=== PATIENT | male | born 1940 | race Caucasian/White ===

== ENCOUNTER → 2016-10-23 | Outpatient (CLI) | payer MEDICARE, OTHER | END | disposition home or self-care (01) | LOC: GMAL 14:23 | PROVIDERS: ATTEND Family Medicine | DX: D51.3 Other dietary vitamin B12 deficiency anemia (principal); Z12.5 Encounter for screening for malignant neoplasm of prostate; R53.83 Other fatigue; E55.9 Vitamin D deficiency, unspecified; D50.8 Other iron deficiency anemias | CPT/HCPCS: 82306; 82607; 82728; 83540; 83550; 84443; G0103 ==

== ENCOUNTER 2016-11-10 15:29 | Inpatient (IN) | payer MEDICARE, OTHER ==
--- NOTE | 2016-11-10 15:30 | HP ---
SUPERVISING PHYSICIAN: Noah Pedroza MD CHIEF COMPLAINT: Left lower leg cellulitis. HISTORY OF PRESENT ILLNESS: This is a 76-year-old male patient who has a history of cellulitis of the lower extremities in 1996 and 2002. They both required hospitalization due to the cellulitis. He went fishing on Thursday and on Thursday evening, his noticed that his left lower leg was swollen. It was warm to the touch. He also had two areas on the medial aspect of his heel and on the lateral aspect of his heel that had some skin pressure damage due to his boots. This morning, he saw Dr. Hurtado, his primary care physician, for an appointment. Earlier today, the erythema and edema was up to mid-calf and at the office visit it had extended up to the knee area. Dr. Hurtado called me for admission for left lower leg cellulitis. PAST MEDICAL HISTORY: 1. Multiple episodes of pneumonia prior to age 14. 2. Cellulitis of the left leg in 1996 and cellulitis of the right leg in 2002, both with hospitalization. 3. History of olecranon bursitis. 4. Seasonal allergies. PAST SURGICAL HISTORY: 1. Left elbow surgery. 2. Tonsillectomy. 3. Left mastectomy for benign gynecomastia. 4. Left shoulder surgery. 5. Multiple skin excisions due to skin cancer. OUTPATIENT MEDICATIONS: None. ALLERGIES: ASPIRIN, ADHESIVE TAPE. FAMILY HISTORY: Father due to lung cancer and myocardial infarction. He was also a smoker. His mother had coronary artery disease. His brother has hypertension. His sister has kidney disorder. Son has diabetes. Both daughters have bipolar disease. Youngest daughter is adopted. 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 He is and has 4 children. He lives outside of [place]. He does not smoke cigarettes, but occasionally smokes a pipe. He drinks alcohol on a social basis. REVIEW OF SYSTEMS: GENERAL: Denies fever, fatigue or weight changes. HEENT: Denies sinus symptoms, ear pain, vision changes or sore throat. RESPIRATORY: Denies wheezing, coughing or shortness of breath. CARDIAC: Denies chest pain, palpitations or tachycardia. GASTROINTESTINAL: Denies nausea, vomiting, diarrhea, constipation or abdominal pain. GENITOURINARY: Denies hematuria, dysuria or polyuria. EXTREMITIES: As per history of present illness. NEUROLOGIC: Denies headache, dizziness, or seizures. SKIN: Denies lesions or rashes other than as indicated in the history of present illness. PHYSICAL EXAMINATION: VITAL SIGNS: Temp 97.9. Heart rate 81. Blood pressure 126/75. Respiratory rate 18. O2 sat 97%. GENERAL: This is a 76-year-old male patient who is sitting up in his hospital bed. He is in no acute distress. HEENT: Normocephalic, atraumatic. Pupils are equal and reactive. NECK: Supple without mass. RESPIRATORY: Clear to auscultation bilaterally. CHEST: There is equal rise and fall of the chest with inspiration and expiration. CARDIOVASCULAR: Regular rate and rhythm. ABDOMEN: Soft, nondistended, nontender. Bowel sounds are positive. EXTREMITIES: Right lower leg has no cyanosis, clubbing or edema. His left lower leg is edematous to just below the knee, but the erythema extends up to the knee and into the medial aspect of the left thigh. Bilateral pedal pulses are palpable. There is no fluctuance or drainage noted. NEUROLOGIC: Awake, alert and oriented times three. LABORATORY: Laboratory results are pending. Left lower extremity ultrasound shows there is no DVT identified and there is normal color flow observed with good flow, augmentation and all deep veins compress normally. ASSESSMENT: 1. Cellulitis of the left lower leg with significant history of lower leg cellulitis resulting in hospital admissions in 1996 and 2002. 2. History of skin cancers. 3. Seasonal allergies. PLAN: We will admit the patient to the hospital. I have ordered routine labs including CRP and ESR as well as blood cultures. We will start him on Protonix for ulcer prophylaxis and Lovenox for DVT prophylaxis. I will also start him on Levaquin IV as well as Bactrim DS. We will monitor his cultures, encourage good pulmonary hygiene and followup as needed. I have also given tramadol for pain. He will need to keep his leg elevated as much as possible. Dr. Pedroza is the collaborating physician and available for consultation. #[id number] [facility]
[2016-11-10] MEDS ORDERED: SODIUM CHLORIDE 0.9% (FLUSH) 10 ML SYG IV PRN (15:42)
[2016-11-10] MEDS ORDERED: ONDANSETRON INJ 4 MG/2 ML VIAL IV PRN (15:44)
[2016-11-10] MEDS ORDERED: PANTOPRAZOLE SODIUM IV 40 MG VIAL IV SCH (16:00)
[2016-11-10] MEDS ORDERED: ENOXAPARIN SODIUM 40 MG/0.4 ML SYG SUBCU SCH (16:00)
--- NOTE | 2016-11-10 16:13 | US ---
EXAM DESCRIPTION: Venous,Lower Extremity LT CLINICAL HISTORY: r/o dvt COMPARISON: None Available. TECHNIQUE: Left lower extremity venous duplex FINDINGS: There is no DVT identified. There is normal color flow observed with good flow augmentation. All deep veins compress normally. IMPRESSION: Negative for DVT Electronically signed by: Jeff Peck MD 11/10/2016 4:12 PM CDT
[2016-11-10] MEDS ORDERED: traMADol HCL 50 MG TAB PO PRN (16:24)
[2016-11-10] MEDS ORDERED: IBUPROFEN 400 MG TAB PO PRN (16:24)
[2016-11-10] MEDS ORDERED: levoFLOXacin 500MG IV 100 ML IVPB ONE (16:56)
[2016-11-10] MEDS: levoFLOXacin 500MG IV 500 MG in PREMIX BAG 1 BAG IVPB SCH (17:14)
[2016-11-10] MEDS: SODIUM CHLORIDE 0.9% 1000ML 1,000 ML IVS PRN (17:14)
[2016-11-10] MEDS: SULFA/TRIMETH 800/160 (DS) TAB 1 EA TAB PO SCH (17:15)
[2016-11-10] MEDS: IV SET AND CAP CHANGE INJ INJ SCH (17:33)
--- NOTE | 2016-11-10 20:06 | PCM.CORE ---
Physician DVT/VTE - Prophylaxis Currently: Patient already on anticoagulation therapy - Contraindications Mechanical Device Contraindication: Procedure contraindicated Medication Contraindication: Complication of Medical Care - Nurse DVT Assessment & Total Each Risk Factor Represents 3 Points: Age over 75 years DVT Assessment Score: 3 - 3-4 High Risk Treatments: Early Ambulation *, Sequential Compression Device - on right leg only
[2016-11-11] MEDS: SODIUM CHLORIDE 0.9% 1000ML 1,000 ML IVS PRN (03:29)
[2016-11-11] MEDS: SULFA/TRIMETH 800/160 (DS) TAB 1 EA TAB PO SCH ×2 (03:31→16:32)
[2016-11-11] MEDS: ENOXAPARIN SODIUM 40 MG/0.4 ML SYG SUBCU SCH (08:37)
[2016-11-11] MEDS ORDERED: MAGNESIUM HYDROXIDE 30 ML UD PO PRN (12:11)
[2016-11-11] MEDS ORDERED: MAGNESIUM HYDROXIDE 30 ML UD PO ONE (12:11)
--- NOTE | 2016-11-11 13:20 | PN ---
SUPERVISING PHYSICIAN: Noah Pedroza MD DATE: 11/11/16 SUBJECTIVE: The patient is sitting up in his hospital bed. His family is at bedside. He denies any shortness of breath, chest pain, nausea or vomiting, but he does complain of some constipation. The patient's told me that he has seen Dr. Villarreal in the past and I explained to her that I was going to talk to his associate, Dr. Frances, later today in regards to his leg. Both the patient and the feel that his leg is very slightly improved since yesterday. OBJECTIVE: VITAL SIGNS: Afebrile. Heart rate 82. Blood pressure 114/64. Respiratory rate 16. O2 saturation 95% on room air. LUNGS: Clear to auscultation bilaterally. CARDIAC: Regular rate and rhythm. ABDOMEN: Soft, nontender, nondistended. Bowel sounds are positive. EXTREMITIES: His right lower extremity has pedal pulses at +2. His left lower extremity has redness and erythema that is very similar to yesterday's exam. It may be very minimally better, especially on the medial aspect of his thigh and his toes are not quite as edematous as yesterday. He does have some bruising on the lateral and medial aspects of the outer heel, but is improved from yesterday's exam. NEUROLOGIC: Awake, alert and oriented times three. LABORATORY: Laboratory from late yesterday showed white blood cell count 8.6, hemoglobin 13.0, hematocrit 38.3, platelet count 152. ESR 61. Electrolytes are within normal limits with a slightly elevated glucose of 131. Serum osmolality 273.9. Liver enzymes were within normal limits, but his C-reactive protein was 24.3. All other labs and films have been reviewed via the EMR. ASSESSMENT: 1. Cellulitis of the left lower leg with significant history of lower leg cellulitis resulting in hospital admissions in 1996 and 2002. 2. History of skin cancers. 3. Seasonal allergies. 4. Constipation. PLAN: We will continue present supportive care. I have contacted Dr. Frances's office, infectious disease physician in [place], who is an associate of Dr. Villarreal. The patient was seen by Dr. Villarreal with his hospitalization either in 1996 or 2002. I will get her recommendations on his antibiotic therapy, especially if he does not have any significant improvement over the next 24 hours. Routine lab is ordered for the morning. I have given him some Milk of Magnesia for constipation and I have also encouraged him to keep his leg elevated and to continue with good pulmonary hygiene. We will continue to monitor the patient closely and followup as needed. Dr. Pedroza is the collaborating physician and available for consultation. #[id number] [facility]
[2016-11-11] MEDS ORDERED: levoFLOXacin 500MG IV 100 ML IVPB ONE (16:28)
[2016-11-11] MEDS ORDERED: SULFA/TRIMETH 800/160 (DS) TAB 1 EA TAB ONE (16:28)
[2016-11-11] MEDS: levoFLOXacin 500MG IV 500 MG in PREMIX BAG 1 BAG IVPB SCH (16:32)
[2016-11-12] MEDS: SULFA/TRIMETH 800/160 (DS) TAB 1 EA TAB PO SCH ×2 (03:56→16:07)
[2016-11-12] MEDS: ENOXAPARIN SODIUM 40 MG/0.4 ML SYG SUBCU SCH (08:53)
[2016-11-12] MEDS: PANTOPRAZOLE SODIUM TAB 40 MG PO SCH (12:20)
[2016-11-12] MEDS ORDERED: levoFLOXacin 500MG IV 100 ML IVPB ONE (14:37)
[2016-11-12] MEDS: levoFLOXacin 500MG IV 500 MG in PREMIX BAG 1 BAG IVPB SCH (16:07)
--- NOTE | 2016-11-12 18:08 | PN ---
DATE: 11/12/16 SUPERVISING PHYSICIAN: Noah Pedroza M.D. SUBJECTIVE: The patient is sitting up in his hospital bed. His left leg is elevated. He has no complaints of shortness of breath, chest pain, nausea or vomiting, diarrhea or constipation. His foot is much better today. OBJECTIVE: VITAL SIGNS: He is afebrile, heart rate 72, blood pressure 141/72, respiratory rate 17, O2 sat is 96% on room air. RESPIRATORY: Clear to auscultation bilaterally. CARDIAC: Regular rate and rhythm. ABDOMEN: Soft, nondistended, non-tender. Bowel sounds are positive. EXTREMITIES: Pedal pulses to bilateral lower extremities are +2. The redness in his left lower leg has improved greatly. Erythema of the leg has improved to his mid foot that extends superiorly to just below the knee and there is no redness on the medial aspect of his left thigh. He has edema to that lower left foot with some pitting and yesterday the tightness in the foot was actually where you could make no indention in the top of his foot. NEUROLOGIC: He is awake, alert and oriented times three. LABORATORY: WBCs are 4.8, hemoglobin 12.2, hematocrit 36.3, platelets 152. Electrolytes are within normal limits. Preliminary blood cultures show no growth after 48 hours. All other labs and films have been reviewed via the EMR. ASSESSMENT: 1. Cellulitis of the left lower leg with significant history of lower leg cellulitis resulting in hospital admissions in 1996 and 2002. 2. History of skin cancers. 3. Seasonal allergies. 4. Constipation now resolved. PLAN: We will continue present supportive care. We will continue his present antibiotic therapy that includes IV Levaquin and p.o. Bactrim. Will continue to monitor his progress over the next day or 2. Hopefully he can go home as long as his leg improves. He had a good bowel movement this morning but he does continue to have p.r.n. Milk of Magnesia as needed. Encouraged good pulmonary hygiene. Will monitor him closely and follow as needed. Dr. Pedroza is the collaborating physician available for consultation. #[id number] [facility]ITAL[facility]
[2016-11-13] MEDS: SULFA/TRIMETH 800/160 (DS) TAB 1 EA TAB PO SCH ×2 (04:16→16:08)
[2016-11-13] MEDS: PANTOPRAZOLE SODIUM TAB 40 MG PO SCH (06:19)
[2016-11-13] MEDS: ENOXAPARIN SODIUM 40 MG/0.4 ML SYG SUBCU SCH (08:55)
--- NOTE | 2016-11-13 11:33 | PN ---
SUPERVISING PHYSICIAN: Noah Pedroza MD DATE: 11/13/16 SUBJECTIVE: The patient is sitting up in his hospital bed. He has no complaints of shortness of breath, chest pain, nausea, vomiting, diarrhea or constipation. His left lower leg has greatly improved. He has not walked for any distance except to the bathroom. He will have his bring his crutches for him at home and we will get him and ambulating. OBJECTIVE: VITAL SIGNS: Temperature 97.4. Heart rate 76. Blood pressure 127/ 79. Respiratory rate 20. O2 saturation 97% on room air, but has gone as low as 93% on room air. LUNGS: Clear to auscultation bilaterally. CARDIAC: Regular rate and rhythm. ABDOMEN: Soft, nontender, nondistended. Bowel sounds are positive. EXTREMITIES: Bilateral pedal pulses are palpable at +2. Left lower extremity is much improved since yesterday. He continues to have mild erythema from midfoot to midcalf. The warmth is much less than yesterday. He still has quite a bit of edema to the lower leg, but it is improved since yesterday. He actually has some wrinkles across the top of his foot. NEUROLOGIC: Awake, alert and oriented times three. LABORATORY: WBC 4.6, hemoglobin 13, hematocrit 38, neutrophils 73.9, ESR pending. CMP is basically within normal limits, but his C-reactive protein has improved from 24.3 on 11/10/16 to 8.3 today. Preliminary blood cultures show no growth after 48 hours. All other labs and films have been reviewed via the EMR. ASSESSMENT: 1. Cellulitis of the left lower leg with significant history of lower leg cellulitis resulting in hospital admissions in 1996 and 2002. 2. History of skin cancers. 3. Seasonal allergies. 4. Constipation, now resolved. PLAN: We will continue present supportive care. His will bring his crutches from home and he will ambulate with crutches in the hallways. If he is doing well on crutches, we will most likely send him home tomorrow with p.o. Bactrim and p.o. Levaquin. He will have close followup with Dr. Hurtado. Meanwhile, we will encourage good pulmonary hygiene. We will continue to monitor the patient closely and followup as needed. Dr. Pedroza is the collaborating physician and available for consultation. #[id number] [facility]
[2016-11-13] MEDS ORDERED: levoFLOXacin 500MG IV 100 ML IVPB ONE (15:55)
[2016-11-13] MEDS: levoFLOXacin 500MG IV 500 MG in PREMIX BAG 1 BAG IVPB SCH (16:07)
[2016-11-13] MEDS: IV SET AND CAP CHANGE INJ INJ SCH (17:37)
[2016-11-14] MEDS: SULFA/TRIMETH 800/160 (DS) TAB 1 EA TAB PO SCH (04:20)
[2016-11-14] MEDS: PANTOPRAZOLE SODIUM TAB 40 MG PO SCH (06:32)
[2016-11-14] MEDS: ENOXAPARIN SODIUM 40 MG/0.4 ML SYG SUBCU SCH (09:12)
[2016-11-14 10:05] VITALS: O2SAT 97
[2016-11-14] MEDS ORDERED: BIFIDOBACTERIUM INFANTIS 4 MG CAP PO SCH (12:00)
[2016-11-14] MEDS ORDERED: levoFLOXacin 500 MG TAB PO ONE (12:57)
--- NOTE | 2016-11-14 14:02 | DS ---
SUPERVISING PHYSICIAN: Noah Pedroza MD DISCHARGE DIAGNOSIS: 1. Cellulitis of the left lower leg with significant history of lower leg cellulitis resulting in hospital admissions in 1996 and 2002. 2. History of skin cancers. 3. Seasonal allergies. 4. Constipation, now resolved. HISTORY OF PRESENT ILLNESS: This is a 76-year-old male patient who has a history of cellulitis of the lower extremities in 1996 and 2002. They both required hospitalization due to the cellulitis. He went fishing on Thursday and on Thursday evening, his noticed that his left lower leg was swollen. It was warm to the touch. He also had two areas on the medial aspect of his heel and on the lateral aspect of his heel that had some skin pressure damage due to his boots. This morning, he saw Dr. Hurtado, his primary care physician, for an appointment. Earlier today, the erythema and edema was up to mid-calf and at the office visit it had extended up to the knee area. Dr. Hurtado called me for admission for left lower leg cellulitis. HOSPITAL COURSE: The patient was started on Bactrim p.o. as well as Levaquin IV. The first 24 hours showed very minimal progress in his cellulitis, but on day 2, it was much improved. Over the next 2 days, each day he had marked improvement around the cellulitis area. He kept his leg elevated at all times. Yesterday, he began ambulating with his crutches. He had no problems with ambulation or getting around in his room. His initial labs showed WBC 8.6 and today is 5.1. He came in with 86.1% neutrophils and today is 70.7%. ESR on admission was 61. It did go up to 90 and we are awaiting ESR today. C- reactive protein on admission was 24.3 and yesterday was 8.3. Electrolytes were within normal limits. He did have a left lower extremity sonogram that was negative for DVT. He can be discharged home. DISCHARGE PLAN: The patient will be discharged home in stable condition. He is to use crutches for ambulation until he sees Dr. Hurtado next week on 11/20/16 at 10:30 AM. He has received his dose of Levaquin today, but he will need to take his dose of Bactrim tonight. He will continue on Levaquin and Bactrim for 5 additional days starting tomorrow. DISCHARGE MEDICATIONS: 1. Align. 2. Levaquin. 3. Bactrim DS. Dr. Pedroza is the collaborating physician and available for consultation. #[id number] [facility]
[2016-11-14 14:49] VITALS: BP 131/72; TEMP 98.2
[2016-11-14] MEDS ORDERED: levoFLOXacin 500 MG TAB ONE (14:54)
== END 2016-11-14 15:05 | disposition home or self-care (01) | DRG 603 ==
LOC: MS 15:29
PROVIDERS: ADMIT Family Medicine; ATTEND Nurse Practitioner Acute Care
DX: L03.116 Cellulitis of left lower limb (principal); K59.00 Constipation, unspecified; J30.2 Other seasonal allergic rhinitis; Z88.6 Allergy status to analgesic agent

== ENCOUNTER 2018-05-28 11:00 | Observation (INO) | payer MEDICARE, OTHER ==
--- NOTE | 2018-05-28 11:28 | HP ---
CHIEF COMPLAINT: Swollen left leg, possibly cellulitis. HISTORY OF PRESENT ILLNESS: Mr. Gong is a very pleasant, 77-year-old gentleman who has had a long history of recurrent episodes of cellulitis in either leg at different times. The patient's initial episode of cellulitis occurred about 20 years ago, he said after brown recluse bite. Since then, he has had four different episodes requiring admission to the hospital and IV antibiotics. There is quite a confusing history, but from what I understand with help from his primary care physician, the patient and his , his last admission required IV antibiotics of Levaquin along with p.o. Bactrim. The admission prior to that, he was discharged only on p.o. Bactrim, and the cellulitis had actually returned. He did require IV Levaquin after the last admission on an outpatient basis for about an extra week. He has had no problems since then. He presented to clinic the day after waking up in the morning with a sudden onset of left leg swelling and redness, endorsing that when he went to sleep it was normal. He does wear compression hose and he did have those on last night. He denies any type of fever and chills and no leg pain. He just noticed the swelling and redness this morning and due to being exposed to this situation in the past, he knew he needed to go to the clinic. PAST MEDICAL HISTORY: 1. 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 PAST SURGICAL HISTORY: 1. Left breast cystectomy. HOME MEDICATIONS: 1. Probiotics. 2. Multivitamins. ALLERGIES: 1. Aspirin. 2. Adhesive tape. SOCIAL HISTORY: He denies any use of tobacco or alcohol and no illicit drug use. REVIEW OF SYSTEMS: GENERAL: He denies fevers or chills. RESPIRATORY: Denies shortness of breath, denies cough, denies wheezing. CARDIAC: Denies palpitations, denies chest pains. ABDOMEN: Endorses normal bowel movements, denies any abdominal pain. EXTREMITIES: Left leg swelling, denies left leg pain, left leg patchy redness. NEUROLOGIC: Denies headache, denies dizziness or confusion. PHYSICAL EXAMINATION: VITAL SIGNS: Temperature 97.7. Pulse 78. Blood pressure 145/76. Respiratory rate 18. O2 saturation 100% on room air. GENERAL: In no acute distress, conversing normally. CHEST: Lungs clear to auscultation, no wheezes, no crackles. CARDIAC: Normal rate and rhythm, no murmurs, good pulses in all extremities even left lower extremity in the dorsalis pedis location. ABDOMEN: Nontender to palpation, no masses appreciated. EXTREMITIES: +2 pitting edema in bilateral lower extremities, left lower extremity with patchy redness that assumes the lining of compression hose, warm to touch over the red areas located around the ankle and the proximal anterior tibial area, normal pulses, normal motor movement in the left lower extremity, slight patchy erythema on the anterior portion of the thigh, a nontender, mobile, nondiscrete oblong mass in the left inguinal region, approximately 3 inches by 1.5 cm long. LABORATORY: White blood cell count 6.6, hemoglobin 12.5, hematocrit 37.6. No left shift. Platelet count 136. D-dimer 0.63, under the threshold for his age. Sodium 136, potassium 3.8, chloride 104, CO2 22, random glucose 106. BUN 18, creatinine 1.01. MICROBIOLOGY: Blood cultures pending. IMAGING: Left lower extremity soft tissue ultrasound reveals 2.8 cm probable lymph node in the left groin, no adjacent soft tissue abnormalities or complications. Most likely enlarged lymph node, no distinct cyst, no parenchymal edema or calcifications, no overlying skin changes. ASSESSMENT: 1. 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 2. Left inguinal lymphadenopathy. 3. History of basal cell carcinoma of the face. 4. History of squamous cell carcinoma of the face. PLAN: We will admit Mr. Gong for IV treatment of his left lower extremity cellulitis. Given his history of antibiotics and failure on some IV antibiotics as outpatient, we will start with IV Levaquin and IV clindamycin. Clindamycin, unlike Levaquin, will lend good coverage of MRSA. If need be, he will be transitioned to oral on either of these, but he may need to have IV Levaquin daily for an extended amount of time, approximately 2 weeks. During that time, he will be able to go to clindamycin p.o. We will continue to watch his erythema on his left leg and follow the hopeful regression from the demarcation previously made. We will give him some steroids based on his history of improvement with this, as well as recent literature indicating its success. Given the ultrasound results given the inguinal mass, currently a lymph node most likely, we will monitor for now. Plan on the patient staying at least one midnight, possibly two. We will assess his improvement on IV antibiotics and likely need to arrange outpatient IV antibiotics to complete a total course of 10 to 14 days given the chronic recurrence of this problem. We will also start prophylactic Lovenox, given his low D-dimer for his age. No sign of DVT at this time. #[id number] [facility]
[2018-05-28] MEDS ORDERED: SODIUM CHLORIDE 0.9% (FLUSH) 10 ML SYG IV PRN (11:52)
[2018-05-28] MEDS ORDERED: IV SET AND CAP CHANGE INJ INJ SCH (12:00)
[2018-05-28] MEDS ORDERED: CLINDAMYCIN IV 600MG 50 ML IVPB ONE ×2 (12:10→20:02)
[2018-05-28] MEDS ORDERED: levoFLOXacin 750MG IV 750 MG in PREMIX BAG 1 BAG IVPB SCH (12:30)
[2018-05-28] MEDS: CLINDAMYCIN IV 600MG 600 MG in PREMIX BAG 1 BAG IVPB SCH ×2 (12:44→20:09)
--- NOTE | 2018-05-28 13:27 | US ---
EXAM DESCRIPTION: Soft Tissue,Extremity: ULTRASOUND. CLINICAL HISTORY: 77 years Male Left Inguinal Mass. Palpable mass in the left groin. COMPARISON: None Available. TECHNIQUE: Transcutaneous scanning: Christine-scale and Doppler modes. FINDINGS: Circumscribed microlobulated mass in the left groin which is palpable measuring 2.8 x 2.3 x 1.2 cm. Minimal vascularity and central echogenicity. Most likely an enlarged lymph node. No distinct cyst. No parenchymal edema or large calcifications. No overlying skin changes. IMPRESSION: 2.8 cm probable lymph node in the left groin. No adjacent soft tissue abnormalities or complications. Electronically signed by: Tanner Rich MD 05/28/2018 1:24 PM [employer]
[2018-05-28] MEDS: levoFLOXacin 750MG IV 750 MG in PREMIX BAG 1 BAG IVPB SCH (14:46)
[2018-05-28] MEDS: ENOXAPARIN SODIUM 40 MG/0.4 ML SYG SUBCU SCH (14:48)
[2018-05-29] MEDS ORDERED: CLINDAMYCIN IV 600MG 50 ML IVPB ONE ×3 (03:38→19:34)
[2018-05-29] MEDS: CLINDAMYCIN IV 600MG 600 MG in PREMIX BAG 1 BAG IVPB SCH ×3 (04:11→20:26)
[2018-05-29] MEDS: SODIUM CHLORIDE 0.9% (FLUSH) 10 ML SYG IV SCH ×2 (08:52→21:19)
[2018-05-29] MEDS: ENOXAPARIN SODIUM 40 MG/0.4 ML SYG SUBCU SCH (10:19)
--- NOTE | 2018-05-29 11:53 | PN ---
DATE: 05/29/18 SUBJECTIVE: The patient is in great spirits this morning, slept decently overnight. He states he has some burning in the left lower extremity, but decreased from the previous day. No new changes or concerns at this time. REVIEW OF SYSTEMS: GENERAL: No anxiety, no weepiness or other issues. CHEST: No shortness of breath, no cough. CARDIAC: No chest pain, no palpitations. ABDOMEN: No abdominal pain, no constipation, no diarrhea. EXTREMITIES: Slightly decreased swelling in the left leg, still burning in the left leg but decreased. NEURO: No confusion, no focal deficits. OBJECTIVE: VITAL SIGNS: Temperature 97.8, pulse 74, blood pressure 133/76, respiratory rate 16. Oxygen 97% on room air. PHYSICAL EXAMINATION: GENERAL: No acute distress, no anxiety, improving mood and affect. CHEST: Lungs clear to auscultation, no wheezes, no cough. CARDIO: Normal rate and rhythm, no murmurs. ABDOMEN: No tenderness to palpation, normal bowel sounds. EXTREMITIES: Pitting in bilateral lower extremities, slightly worse on the left. Edema on the left leg is close to pitting, but improved from previous day. Regarding the erythema, previously demarcated, it is slightly receding in location as well as in severity. Some wrinkling of the skin can be seen in the dorsal foot, which is an improvement from yesterday. No pain with palpation throughout the leg. No pain over the enlarged lymph node in the left leg as well. Pulses easily defined in all extremities. NEURO: No focal deficits, alert and oriented to person, place and time. LABORATORY: White blood cells 5.9, hemoglobin 11.9, hematocrit 35.4, platelet count 140,000. Sodium 134, potassium 3.8, chloride 104, carbon dioxide 21, BUN/creatinine 15/0.91. MICROBIOLOGY: Blood cultures x2 are negative to date. IMAGING: Left leg soft tissue ultrasound from 05/28/18: "2.8 cm probable lymph node in the left groin. No adjacent soft tissue abnormalities or complications." ASSESSMENT: 1. 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 2. Left inguinal lymphadenopathy. 3. History of basal cell carcinoma of the face. 4. History of squamous cell carcinoma of the face. PLAN: Mr. Gong seems to be improving very well on IV clindamycin and IV Levaquin, we will continue these. He is currently on DVT prophylaxis with Lovenox. His labs and clinical status regarding his left leg seem to be improving. We will continue the current antibiotics, he will likely need 10 to 14 days of IV Levaquin given the return of this issue in the past. He likely can be transitioned to p.o. clindamycin since it would require multiple doses of intravenous access a day. If he continues to improve and we see recession of the erythema and swelling of the left leg, he likely can be transitioned to outpatient treatment with IV antibiotics at [facility] or here in the hospital. I expect discharge to be completed tomorrow or the next day. [facility][id number] [facility]
[2018-05-29] MEDS: levoFLOXacin 750MG IV 750 MG in PREMIX BAG 1 BAG IVPB SCH (13:20)
[2018-05-30] MEDS ORDERED: CLINDAMYCIN IV 600MG 50 ML IVPB ONE ×2 (04:27→12:11)
[2018-05-30] MEDS: CLINDAMYCIN IV 600MG 600 MG in PREMIX BAG 1 BAG IVPB SCH ×2 (04:54→12:23)
[2018-05-30] MEDS: ENOXAPARIN SODIUM 40 MG/0.4 ML SYG SUBCU SCH (08:00)
[2018-05-30] MEDS: SODIUM CHLORIDE 0.9% (FLUSH) 10 ML SYG IV SCH (08:03)
[2018-05-30] MEDS ORDERED: CLINDAMYCIN HCL CAP (ER DISP) 150 MG CAP ONE (11:55)
[2018-05-30] MEDS: levoFLOXacin 750MG IV 750 MG in PREMIX BAG 1 BAG IVPB SCH (13:19)
[2018-05-30 14:01] VITALS: BP 137/79; TEMP 98.2; O2SAT 96
== END 2018-05-30 15:56 | disposition home or self-care (01) ==
LOC: MS 11:00 → INTOOBSV 11:00
PROVIDERS: ADMIT Family Medicine; ATTEND Nurse Practitioner Family
DX: L03.116 Cellulitis of left lower limb (principal); R59.0 Localized enlarged lymph nodes; E78.5 Hyperlipidemia, unspecified; M81.0 Age-related osteoporosis without current pathological fracture; E53.8 Deficiency of other specified B group vitamins; D50.9 Iron deficiency anemia, unspecified; N52.9 Male erectile dysfunction, unspecified; Z79.899 Other long term (current) drug therapy; Z88.6 Allergy status to analgesic agent; Z91.048 Other nonmedicinal substance allergy status; Z85.828 Personal history of other malignant neoplasm of skin
CPT/HCPCS: 96366 ×3; 96367; 96365; 96376; 96372 ×3; J1650 ×3; J3490 ×7; J1956 ×3; 85379; 80048 ×2; 36415 ×4; 85025; 87040 ×2; 76881; G0378

== ENCOUNTER 2018-12-18 08:28 | Inpatient (IN) | payer MEDICARE, OTHER ==
[2018-12-18] MEDS ORDERED: SODIUM CHLORIDE 0.9% 1000ML 1,000 ML IVS ONE (08:51)
[2018-12-18] MEDS ORDERED: ACETAMINOPHEN 500 MG TAB PO ONE (08:51)
[2018-12-18] MEDS ORDERED: PIPERACILLIN/TAZOBACTAM 3.375 GM in SODIUM CHLORIDE 0.9% 100ML 100 ML IVPB ONE (08:52)
[2018-12-18] MEDS ORDERED: VANCOMYCIN HCL INJ 1,000 MG in SODIUM CHLORIDE 0.9% 250ML 250 ML IVPB ONE (08:52)
--- NOTE | 2018-12-18 08:53 | ED.PDOC ---
History of Present Illness - General Chief Complaint: Skin/Abrasion/Tear Stated Complaint: redness to right lower leg Time Seen by Provider: 12/18/18 08:50 - History of Present Illness Initial Comments: 78 yo M no significant PMH presents to ED c/o RLE cellulitis that began with burning discomfort 3 days ago and culminated in redness today. who is nurse at bedside has marked area of erythema with pen. Denies trauma fever chills nausea vomiting diarrhea chest pain sob diaphoresis. No change in diet rest bowel or bladder. Ambulatory in the emergency room and PMD is Dr. Hurtado. Denies drinking admits occasional smoking of pipe. Admits FH HTN DM no other c/o today. Allergies/Adverse Reactions: Allergies Aspirin Allergy (Verified 07/24/14 07:46) Protective Adhesive Powder Allergy (Verified 07/24/14 07:46) Home Medications: Ambulatory Orders NK 12/18/18 Review of Systems - Review of Systems Constitutional: States: no symptoms reported EENTM: States: no symptoms reported Respiratory: States: no symptoms reported Cardiology: States: no symptoms reported Gastrointestinal/Abdominal: States: no symptoms reported Genitourinary: States: no symptoms reported Musculoskeletal: States: no symptoms reported Skin: States: see HPI, change in color Neurological: States: no symptoms reported Endocrine: States: no symptoms reported Hematologic/Lymphatic: States: no symptoms reported All other Systems: Reviewed and Negative Past Medical History (General) - Patient Medical History Hx Seizures: No Hx Stroke: No Hx Asthma: Yes - as a child Hx of COPD: No Hx Congestive Heart Failure: No Hx Pacemaker: No Hx Hypertension: No Hx Diabetes: No Hx Cancer: Yes - Skin Hx MRSA: No - Vaccination History Hx Influenza Vaccination: No Hx Pneumococcal Vaccination: No - Social History Hx Tobacco Use: No Hx Alcohol Use: No Hx Substance Use: No Hx Physical Abuse: No Hx Emotional Abuse: No Family Medical History - Family History Mother Age (years): 92 Living Status: Hx Family Stroke: Yes Hx Cardiac Disease: Yes Hx Family;Other: Blind in 80yrs Sister Living Status: Still Living Hx Family Diabetes: Yes Hx Family;Other: part of foot removed due to Father Age (years): 60 Living Status: Hx Family;Other: dad mom with heart condtions Physical Exam - Physical Exam General Appearance: No apparent distress Eye Exam: bilateral normal Ears, Nose, Throat: normal ENT inspection Neck: non-tender, full range of motion Respiratory: normal breath sounds, no respiratory distress Cardiovascular/Chest: regular rate, rhythm Gastrointestinal/Abdominal: non tender, soft Back Exam: normal inspection Extremity: normal range of motion Neurologic: no motor/sensory deficits Skin Exam: other - erythema and warmth to RLE demarcated at about half level not extending below ankle and not extending superiorly Progress - Progress Progress: 12/18/18 08:58 A/P-RLE Cellulitis 1.iv fluids tylenol cbc cmp zosyn vancomycin ADMIT Observation 12/18/18 09:01 will add pt/ptt 12/18/18 09:50 Laboratory Tests 12/18/18 12/18/18 12/18/18 09:00 09:10 09:10 WBC 8.8 RBC 3.42 L Hgb 11.0 L Hct 32.5 L MCV 95.1 H MCH 32.2 H MCHC 33.9 RDW 13.2 Plt Count 154 MPV 6.8 L Absolute Neuts (auto) 8.10 H Absolute Lymphs (auto) 0.40 L Absolute Monos (auto) 0.30 Absolute Eos (auto) 0.00 Absolute Basos (auto) 0.00 Neutrophils % 91.9 H Lymphocytes % 4.7 L Monocytes % 3.0 Eosinophils % 0.2 L Basophils % 0.2 PT 12.1 H INR 1.21 H PTT (SP) 28.5 Sodium 136 Potassium 3.3 L Chloride 104 Carbon Dioxide 23 Anion Gap 12.3 BUN 17 Creatinine 0.97 BUN/Creatinine Ratio 17.5 Random Glucose 107 H Serum Osmolality 274.0 L Calcium 8.1 L Total Bilirubin 0.6 AST 31 ALT 22 Alkaline Phosphatase 52 Serum Total Protein 6.7 Albumin 3.7 Globulin 3.0 Albumin/Globulin Ratio 1.[address] Stafford for Admission. Spoke to Dr. Stafford who accepts patient reques t addition of ESR CRP Departure - Departure Clinical Impression: Cellulitis Qualifiers: Site of cellulitis: extremity Site of cellulitis of extremity: lower extremity Laterality: right Qualified Code(s): L03.115 - Cellulitis of right lower limb Time of Disposition: 09:58 Disposition: Admit Patient Condition: Fair Departure Forms: ED Discharge - Pt. Copy, Patient Portal Self Enrollment Instructions: DI for Abrasion Referrals: Jeff Hurtado III, MD [Primary Care Provider] - 1-2 Weeks Home Medications: Ambulatory Orders NK 12/18/18 Decision To Admit - Decistion To Admit Decision to Admit Reason: Admit from ER Decision to Admit Date: 12/18/18 Decision to Admit Time: 09:56
[2018-12-18] MEDS ORDERED: PIPERACILLIN/TAZOBACTAM 3.375 GM VIAL IVPB ONE ×3 (09:07→19:21)
[2018-12-18] MEDS ORDERED: SODIUM CHLORIDE 0.9% 100ML 100 ML IVPB ONE ×2 (09:07→19:21)
--- NOTE | 2018-12-18 10:31 | HP ---
SUPERVISING PHYSICIAN: Noah Pedroza MD CHIEF COMPLAINT: Right lower leg pain, redness and swelling. HISTORY OF PRESENT ILLNESS: This is a 78 year-old male the patient who has a significant history of bilateral lower extremity cellulitis. He has been stung by a brown recluse multiple times, twice on his right leg and once on his left leg. He has also been in the hospital multiple times for lower leg cellulitis. He has no other real significant medical history. He was at a ball game last night and got home, took his boot off and saw that his right lower extremity was very swollen and edematous. This has recurred multiple times in the past so he presented today to the Emergency Room for treatment. His initial vital signs were a temperature of 99.1 with heart rate of 95, blood pressure 150/77, respiratory rate 20, oxygen saturation 95% on room air. His laboratory studies were done and WBC was 8.8, he had a left shift on his differential. Hemoglobin 11, hematocrit 32.5. He did have an ESR of 70. His coagulation studies were unremarkable. Electrolytes were basically within normal limits with the exception of potassium being slightly low at 3.3 with calcium of 8.1. His C- reactive protein was 18.7. Blood cultures were done and the patient was started on vancomycin as well as Zosyn. In the Emergency Room he received some IV fluids as well as some Tylenol for pain. I was called for hospital admission. PAST MEDICAL HISTORY: 1. Multiple episodes of pneumonia when he was a child. 2. Multiple hospital admissions for bilateral lower leg cellulitis. 3. 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 4. History of olecranon bursitis. 5. Seasonal allergies. PAST SURGICAL HISTORY: 1. Left elbow surgery. 2. Tonsillectomy. 3. Left breast cystectomy. 4. Left shoulder surgery. 5. Multiple skin excisions due to basal cell and squamous cell carcinoma. HOME MEDICATIONS: None. ALLERGIES: 1. Aspirin. 2. Adhesive tape. FAMILY HISTORY: Positive for lung cancer, myocardial infarction, coronary artery disease, hypertension, kidney disease, diabetes, bipolar. SOCIAL HISTORY: He is retired from the . He is and has four children. He lives outside of [place]. He denies any tobacco or ETOH or illicit drug use. REVIEW OF SYSTEMS: GENERAL: Negative for fever or weight changes. HEENT: Negative for sinus symptoms, ear pain, vision changes, sore throat. RESPIRATORY: Negative for coughing, wheezing, shortness of breath CARDIAC: Negative for chest pain, palpitations, tachycardia. GI: Negative for nausea, vomiting, diarrhea or constipation or abdominal pain. . GENITOURINARY: Negative for hematuria, dysuria, polyuria. EXTREMITIES: As per history of present illness. SKIN: Denies lesions or rashes but positive for cellulitis as in history of present illness. NEUROLOGICAL: Negative for headaches, dizziness or seizures. PHYSICAL EXAMINATION: VITAL SIGNS: Temperature 98.3, heart rate 68, blood pressure 95/54, respiratory rate 18, oxygen saturation 97% on room air. GENERAL: This is a 78 year-old male patient lying in his hospital bed. He is in no acute distress. HEENT: Normocephalic and atraumatic. Pupils are equal and reactive. Oropharynx is clear. NECK: Supple without mass. CHEST: Essentially clear to auscultation bilaterally. There is equal rise and fall of the chest with inspiration and expiration. CARDIOVASCULAR: Regular rate and rhythm. ABDOMEN: Soft, nondisplaced, non-tender. Bowel sounds are positive. EXTREMITIES: He has a trace of pedal edema to his left lower extremity.There is an area of red demarcation on his right lower leg. It is circumferential over his entire right lower leg with +1 to +2 edema. His bilateral pedal pulses are palpable at +2. NEUROLOGIC: He is awake, alert, and oriented x3. Cranial nerves II through XII are grossly intact. Labs and films are as per the history of present illness. ASSESSMENT: 1. 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 2. History of multiple skin cancers requiring excisions. 3. Seasonal allergies. PLAN: We will admit the patient to the hospital and continue his vancomycin as well as his Zosyn. Due to his multiple hospitalizations for cellulitis, it may be beneficial to contact Dr. Frances on Thursday for antibiotic coverage. We will monitor his cultures as they become available. He is to elevate the leg as much as possible. I have ordered routine lab for in the morning. At this point, there is no signs or symptoms of DVT in that lower extremity but we may need to do an ultrasound when available. I have given him Lovenox for DVT prophylaxis, Protonix for ulcer prophylaxis and we will continue to monitor him closely and follow as needed. #[id number] MTDD
[2018-12-18] MEDS ORDERED: VANCOMYCIN HCL INJ 1,000 MG VIAL IVPB ONE ×2 (10:41→19:21)
[2018-12-18] MEDS ORDERED: SODIUM CHLORIDE 0.9% 250ML 250 ML ONE ×2 (10:41→19:21)
[2018-12-18] MEDS ORDERED: ONDANSETRON INJ 4 MG/2 ML VIAL IV PRN (11:59)
[2018-12-18] MEDS ORDERED: SODIUM CHLORIDE 0.9% (FLUSH) 10 ML SYG IV PRN (11:59)
[2018-12-18] MEDS ORDERED: IV SET AND CAP CHANGE INJ INJ SCH (12:00)
[2018-12-18] MEDS ORDERED: VANCOMYCIN PER PHARMACY IVPB SCH (12:00)
[2018-12-18] MEDS: PIPERACILLIN/TAZOBACTAM 3.375 GM in SODIUM CHLORIDE 0.9% 100ML 100 ML IVPB SCH ×2 (15:22→19:45)
[2018-12-18] MEDS: ENOXAPARIN SODIUM 40 MG/0.4 ML SYG SUBCU SCH (20:55)
[2018-12-18] MEDS: SODIUM CHLORIDE 0.9% (FLUSH) 10 ML SYG IV SCH (20:55)
[2018-12-18] MEDS: VANCOMYCIN HCL INJ 1,000 MG in SODIUM CHLORIDE 0.9% 250ML 250 ML IVPB SCH (22:40)
[2018-12-19] MEDS ORDERED: PIPERACILLIN/TAZOBACTAM 3.375 GM VIAL IVPB ONE ×5 (01:16→19:33)
[2018-12-19] MEDS ORDERED: SODIUM CHLORIDE 0.9% 100ML 100 ML IVPB ONE ×5 (01:17→19:33)
[2018-12-19] MEDS: PIPERACILLIN/TAZOBACTAM 3.375 GM in SODIUM CHLORIDE 0.9% 100ML 100 ML IVPB SCH ×4 (01:34→19:49)
[2018-12-19] MEDS ORDERED: PANTOPRAZOLE SODIUM TAB 40 MG PO ONE (04:24)
[2018-12-19] MEDS: PANTOPRAZOLE SODIUM IV 40 MG VIAL IV SCH (05:49)
[2018-12-19] MEDS: SODIUM CHLORIDE 0.9% (FLUSH) 10 ML SYG IV SCH ×2 (08:24→20:34)
[2018-12-19] MEDS ORDERED: SODIUM CHLORIDE 0.9% 250ML 250 ML ONE ×2 (12:04→19:31)
[2018-12-19] MEDS ORDERED: VANCOMYCIN HCL INJ 1,000 MG VIAL IVPB ONE ×2 (12:04→19:31)
[2018-12-19] MEDS: VANCOMYCIN HCL INJ 1,000 MG in SODIUM CHLORIDE 0.9% 250ML 250 ML IVPB SCH (12:06)
--- NOTE | 2018-12-19 20:10 | PN ---
DATE: 12/19/18 SUPERVISING PHYSICIAN: Noah Pedroza M.D. SUBJECTIVE: The patient is sitting up in bed. He denies any chest pain, shortness of breath, nausea or vomiting. He did say that he felt like his leg was better. His right leg is elevated on a pillow. OBJECTIVE: VITAL SIGNS: Temperature 98.4, heart rate 84, blood pressure 140/65, respiratory rate 16, O2 sat 97% on room air. RESPIRATORY: Essentially clear to auscultation bilaterally. CARDIAC: Regular rate and rhythm. GASTROINTESTINAL: Abdomen is soft, nondistended, non-tender. Bowel sounds are positive. EXTREMITIES: Right lower leg is slightly less edematous than yesterday. The area of erythema is slightly less and bilateral pedal pulses are palpable at +2. There is no fluctuance or drainage. NEUROLOGIC: He is awake, alert and oriented times three. LABORATORY: WBCs are 6 with hemoglobin 9.9 and hematocrit 28.7. Electrolytes are basically within normal limits with the exception of his calcium is slightly low at 7.7. Preliminary blood cultures show no growth after 24 hours. All other labs and films have been reviewed via the EMR. ASSESSMENT: 1. 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 2. History of multiple skin cancers requiring excisions. 3. Seasonal allergies. 4. Anemia, macrocytic and normochromic in presentation with no history of anemia. PLAN: We will continue present supportive care. He is encouraged to keep his leg elevated. We will continue with his present antibiotic treatment. Because of his extensive history of cellulitis to bilateral lower extremities, he may need a referral to Dr. Frances and it may be beneficial for her to be contacted to see how long he needs his antibiotic therapy as well as if it should be IV or he can go home on p.o. antibiotics. I have ordered a right lower extremity Doppler for tomorrow as well as a CBC for in the morning. Will continue to monitor closely and follow as needed. #[id number] MTDD
[2018-12-19] MEDS: ENOXAPARIN SODIUM 40 MG/0.4 ML SYG SUBCU SCH (20:34)
[2018-12-19] MEDS: DOCUSATE SODIUM 100 MG CAP PO SCH (20:45)
[2018-12-19] MEDS ORDERED: VANCOMYCIN HCL INJ 500 MG VIAL ONE (22:58)
[2018-12-19] MEDS ORDERED: VANCOMYCIN HCL INJ 1,000 MG, VANCOMYCIN HCL INJ 250 MG in SODIUM CHLORIDE 0.9% 250ML 25... IVPB SCH (23:00)
[2018-12-20] MEDS: PIPERACILLIN/TAZOBACTAM 3.375 GM in SODIUM CHLORIDE 0.9% 100ML 100 ML IVPB SCH ×4 (02:14→22:20)
[2018-12-20] MEDS: PANTOPRAZOLE SODIUM IV 40 MG VIAL IV SCH (05:54)
[2018-12-20] MEDS ORDERED: PIPERACILLIN/TAZOBACTAM 3.375 GM VIAL IVPB ONE ×2 (07:37→13:04)
[2018-12-20] MEDS ORDERED: SODIUM CHLORIDE 0.9% 100ML 100 ML IVPB ONE ×2 (07:38→13:04)
[2018-12-20] MEDS: DOCUSATE SODIUM 100 MG CAP PO SCH (07:51)
[2018-12-20] MEDS: SODIUM CHLORIDE 0.9% (FLUSH) 10 ML SYG IV SCH ×2 (07:52→22:15)
--- NOTE | 2018-12-20 09:07 | US ---
EXAM DESCRIPTION: Venous,Lower Extremity RT: ULTRASOUND. CLINICAL HISTORY: cellulitis right lower extremity. COMPARISON: None Available. TECHNIQUE: Christine-scale and doppler sonographic evaluation of the deep venous system of the right lower extremity. FINDINGS: Doppler evaluation shows normal color flow and normal phasicity and augmentation of the right common femoral vein, femoral vein, popliteal vein, greater saphenous vein at the junction with the common femoral vein, peroneal, anterior and posterior tibial vein. The right lower extremity deep veins were completely compressible; normal occlusion with transducer pressure. Christine-scale survey showed no echogenic thrombus within these veins. IMPRESSION: 1. Duplex ultrasound evaluation of the right lower extremity deep venous system showing no evidence of thrombosis. Electronically signed by: Tanner Rich MD 12/20/2018 9:06 AM CDT
[2018-12-20] MEDS ORDERED: SODIUM CHLORIDE 0.9% 250ML 250 ML ONE ×2 (10:25→18:43)
[2018-12-20] MEDS ORDERED: VANCOMYCIN HCL INJ 500 MG VIAL ONE ×2 (10:25→18:43)
[2018-12-20] MEDS ORDERED: VANCOMYCIN HCL INJ 1,000 MG VIAL IVPB ONE ×2 (10:25→18:43)
[2018-12-20] MEDS ORDERED: VANCOMYCIN HCL INJ 1,000 MG, VANCOMYCIN HCL INJ 250 MG in SODIUM CHLORIDE 0.9% 250ML 25... IVPB SCH ×2 (11:00→21:00)
[2018-12-20 21:48] VITALS: BP 135/72; TEMP 98.7; O2SAT 97
--- NOTE | 2018-12-20 22:16 | DS ---
SUPERVISING PHYSICIAN: Alfredito Rousseau M.D. ADMISSION DIAGNOSIS: 1. 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 2. History of multiple skin cancer excisions. 3. Seasonal allergies. DISCHARGE DIAGNOSIS: 1. 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 2. History of multiple skin cancer excisions. 3. Seasonal allergies. HOSPITAL COURSE: This is a 78 year-old male patient who has a significant history of bilateral lower extremity cellulitis. This apparently started being on a regular basis after a brown recluse bite times 2. Anyhow, he came to the Emergency Room and was found to have lower extremity cellulitis. For those reasons he was referred for admission. He was noted to have an elevated CRP as well as ESR. He was placed on Zosyn as well as vancomycin. In the past he was on vancomycin for approximately 2 weeks with the cellulitis. Today, I spoke with Dr. Frances, the Infectious Disease physician in [place]. I discussed IV antibiotic options with her and she was wanting to continue the vancomycin for 2 weeks and then followup with her as an outpatient. I have asked to get a PICC line placed. So the plan at this point will be for this patient to be discharged after the vancomycin this evening and the come back in the morning for the PICC line as well as the IV vancomycin. Pharmacy will dose the vancomycin. #[id number] MTDD
[2018-12-20] MEDS: ENOXAPARIN SODIUM 40 MG/0.4 ML SYG SUBCU SCH (22:21)
[2018-12-21] MEDS ORDERED: PANTOPRAZOLE SODIUM TAB 40 MG PO SCH (06:30)
== END 2018-12-20 22:25 | disposition home or self-care (01) | DRG 603 ==
LOC: ER 08:28 → OBSVTOIN 10:30 → MS 10:30
PROVIDERS: ADMIT Nurse Practitioner Acute Care; ATTEND Nurse Practitioner
DX: L03.115 Cellulitis of right lower limb (principal); J30.2 Other seasonal allergic rhinitis; D50.9 Iron deficiency anemia, unspecified; F17.290 Nicotine dependence, other tobacco product, uncomplicated; Z98.890 Other specified postprocedural states; Z85.828 Personal history of other malignant neoplasm of skin; Z88.6 Allergy status to analgesic agent

== ENCOUNTER → 2018-12-27 | Outpatient (CLI) | payer MEDICARE, OTHER | LOC: LAB.O 16:27 | PROVIDERS: ATTEND Family Medicine | DX: Z79.899 Other long term (current) drug therapy (principal) ==

== ENCOUNTER → 2019-01-13 | Outpatient (CLI) | payer MEDICARE, OTHER | LOC: GMAL 10:40 | PROVIDERS: ATTEND Family Medicine | DX: D51.3 Other dietary vitamin B12 deficiency anemia (principal); R53.83 Other fatigue; E55.9 Vitamin D deficiency, unspecified; E78.2 Mixed hyperlipidemia; I10 Essential (primary) hypertension ==

== ENCOUNTER → 2019-07-20 | Outpatient (CLI) | payer MEDICARE, OTHER ==
--- NOTE | 2019-07-20 16:08 | CT ---
EXAM DESCRIPTION: Maxillofacial w/wo Contrast CLINICAL HISTORY: 78 years Male, NEOPLASM OF UNCERTAIN BEHAVIOR OF SKIN COMPARISON: None. TECHNIQUE: Pre and postcontrast 2.[address] scanning through the facial bones was performed without and with contrast. Coronal and sagittal reformatted images are evaluated. Routine adult dose of nonionic iodinated IV contrast was administered. FINDINGS: Axial precontrast images show abnormal increased density in the cutaneous and subcutaneous soft tissues of the left face overlying the left malar eminence. The soft tissue mass measures 1 x 1.3 cm with infiltrative appearance and indistinct margins. This is thought to be the site of facial abnormality mentioned in the clinical history (neoplasm of uncertain behavior). Alternatively this could be the site of previous surgical removal of a mass. Clinical correlation recommended. Postcontrast axial images through the area show no evidence of rim-enhancing fluid collection. The density of the lesion itself increases slightly from 32-47 Hounsfield units suggesting mild enhancement of the lesion. No enlarged lymph nodes in the upper left neck. No bony destructive lesions. Paranasal sinuses are clear. Visualized portions of the brain are unremarkable. Normal appearance of the globes and orbital contents. Postcontrast images show normal enhancement of the vessels at the base the brain. Normal enhancement of upper cervical vessels. Symmetrical appearance of cemented or salivary glands and parotid glands. Normal parapharyngeal fatty spaces. Moderate degenerative changes in the C-spine. Metal artifacts from dental fillings. Coronal reformatted images show left facial soft tissue mass with minimal enhancement and slight indentation of the overlying skin. Correlate with biopsy findings. IMPRESSION: Small mass 1.3 cm with indistinct margins in the cutaneous and subcutaneous soft tissue of the left face overlying the malar eminence. See above. This exam was performed according to our departmental dose-optimization program, which includes automated exposure control, adjustment of the mA and/or kV according to patient size and/or use of iterative reconstruction technique. Electronically signed by: Rl Marcos MD 07/20/2019 4:06 PM CDT
== END ==
LOC: LAB.O 14:27
PROVIDERS: ATTEND Family Medicine
DX: D48.5 Neoplasm of uncertain behavior of skin (principal); R53.83 Other fatigue

== ENCOUNTER → 2020-02-27 | Outpatient (CLI) | payer MEDICARE, OTHER ==
--- NOTE | 2020-02-27 15:53 | US ---
EXAM DESCRIPTION: Abdomen,Complete: Ultrasound. CLINICAL HISTORY: 79 years Male ACUTE ABDOMEN PAIN COMPARISON: None Available. TECHNIQUE: Transabdominal scanning: grayscale and Doppler modes. FINDINGS: Gallbladder: normal size, shape, echogenicity; no intraluminal stones or sludge. No fluid around the gallbladder. No wall thickening. 2.1 mm. Non-tender with transducer pressure. Common bile duct: caliber 5.9 mm upper normal limits. Liver: normal echogenicity; contour liver capsule smooth where seen. No fluid around the liver. Intrahepatic biliary ducts normal caliber. Doppler hepatopedal flow and normal caliber portal vein 9.2 mm. Long axis right lobe 13.9 cm. Pancreas: normal size and echogenicity. Duct not seen. Complete abdominal aorta: Normal caliber from the proximal segment to the distal bifurcation.. IVC: visualized and normal caliber. Right kidney: long axis measures 9.3 cm; volume 147.9 mL. Cortical echogenicity is normal. Normal cortical thickness. No echogenic stones; no hydronephrosis. Left kidney: long axis measures 10.4 cm; volume 149 mL. Cortical echogenicity normal. Normal cortical thickness. Minimal lobulation of the capsule. 2.3 cm cyst. Heterogeneous soft tissue mass in the mid lateral cortex versus splenic up, measuring 4 cm. No echogenic stones and no hydronephrosis. Spleen: Normal. No focal lesions.. 9.9 cm long axis. Other: None. IMPRESSION: 1. Possible 4 cm mass lateral cortex of left kidney versus splenic hump. Consider follow-up CT kidney without and with IV contrast. 2.3 cm cyst. No echogenic stones or hydronephrosis. Both kidneys with minimal lobulation of the cortex. Right kidney otherwise unremarkable. 2. Gallbladder, common bile duct, liver and pancreas are negative. Normal caliber of the abdominal aorta and IVC. Electronically signed by: Tanner Rich MD 02/27/2020 3:52 PM COMMISSIONING MANAGER
== END ==
LOC: US 08:19
PROVIDERS: ATTEND Family Medicine
DX: R10.0 Acute abdomen (principal); N28.9 Disorder of kidney and ureter, unspecified; N28.1 Cyst of kidney, acquired; Q63.1 Lobulated, fused and horseshoe kidney

== ENCOUNTER → 2020-02-28 | Outpatient (CLI) | payer MEDICARE, OTHER ==
--- NOTE | 2020-02-28 11:54 | US ---
EXAM DESCRIPTION: Carotid Duplex: ULTRASOUND. CLINICAL HISTORY: 79 years Male occlusion and stenosis of unspecified carotid artery COMPARISON: None. TECHNIQUE: Transcutaneous scanning utilizing leon-scale and Doppler modes to evaluate the bilateral carotid systems and vertebral arteries. Percentage of diameter of stenosis or no stenosis recorded will be based upon NASCET criteria. FINDINGS: Peak systolic/end diastolic velocities (CM-Sec) CCA Right 81/14 Left 98/19. ICA Right proximal 63/14, distal 60/19. Left proximal 44/11, Distal 68/23. Vertebral Right 36/10 Left 55/8. ECA (PS Only) Right 66 left 72. ICA/CCA peak systolic velocity ratio: Right 0.8 Left 0.7 ICA/CCA end diastolic velocity ratio: Right 1.0 Left 1.2 Vertebral arteries: antegrade flow. Comments: Atherosclerotic calcification bilaterally, more on the right. Area and diameter stenosis on the right less than 20%. IMPRESSION: 1. Doppler evaluation of the bilateral carotid systems and vertebral arteries shows no hemodynamically significant stenoses (less than 70%). 2. No significant amount of plaque in the carotid arteries bilaterally. Bilateral vertebral arteries showed antegrade-cephalad flow. Electronically signed by: Tanner Rich MD 02/28/2020 11:52 AM TEST EQUIPMENT MECHANIC
== END ==
LOC: US 08:20
PROVIDERS: ATTEND Family Medicine
DX: I65.23 Occlusion and stenosis of bilateral carotid arteries (principal)

== ENCOUNTER → 2020-03-06 | Outpatient (CLI) | payer MEDICARE, OTHER ==
--- NOTE | 2020-03-06 15:18 | CT ---
EXAM DESCRIPTION: Abdomen/Pelvis w/wo Contrast CLINICAL HISTORY: other specified disorders of kidney and ureter COMPARISON: None. TECHNIQUE: Pre and postcontrast CT images of the abdomen and pelvis are obtained using standard imaging protocol. This exam was performed according to our departmental dose-optimization program, which includes automated exposure control, adjustment of the mA and/or kV according to patient size and/or use of iterative reconstruction technique . FINDINGS: Visualized lung bases show no acute findings. Calcified pulmonary nodules in the right lower chest are seen. The liver, spleen, pancreas, adrenal glands, and gallbladder are unremarkable. Mild atherosclerotic disease. No nephrolithiasis. Exophytic 2 cm cortical cyst of the posterior mid pole left kidney. No ureteral calcification or obstruction. No filling defects are seen in the pelvicalyceal systems or ureters. Urinary bladder is unremarkable filling with contrast on delayed images. Prostate calcifications are seen. The appendix is small and air-filled. Stomach poorly distended but unremarkable. No small bowel obstruction or bowel wall thickening. Mild scattered less than 1 cm lymph nodes are seen throughout the mesentery of the abdomen. No pathologically enlarged retroperitoneal lymphadenopathy. Increased volume of stool throughout the colon. No wall thickening or inflammation. No significant diverticular disease. Osseous structures show no aggressive bony lesions. Moderate disc degenerative disease and facet arthropathy of the lumbar spine is seen. Mild dextrocurvature of the upper lumbar spine. IMPRESSION: No acute findings on CT of the abdomen and pelvis. Moderate colon constipation or obstipation is seen. Simple left renal cortical cyst is seen. No nephrolithiasis or ureteral obstruction. Electronically signed by: Venu Domínguez MD 03/06/2020 3:16 PM LINOLEUM TILE FLOOR LAYER
== END ==
LOC: CT 08:35
PROVIDERS: ATTEND Family Medicine
DX: N28.89 Other specified disorders of kidney and ureter (principal); K59.00 Constipation, unspecified; N28.1 Cyst of kidney, acquired

== ENCOUNTER → 2020-04-03 | Outpatient (CLI) | payer MEDICARE, OTHER | LOC: GMAL 10:47 | PROVIDERS: ATTEND Family Medicine | DX: D51.3 Other dietary vitamin B12 deficiency anemia (principal); Z79.899 Other long term (current) drug therapy; E55.9 Vitamin D deficiency, unspecified; R53.83 Other fatigue; I10 Essential (primary) hypertension; E78.2 Mixed hyperlipidemia ==

== ENCOUNTER → 2020-04-10 | Outpatient (CLI) | payer MEDICARE, OTHER | LOC: GMAL 15:04 | PROVIDERS: ATTEND Family Medicine | DX: D50.8 Other iron deficiency anemias (principal) ==